=== PATIENT | female | born 1980 | race Hispanic/Latino ===

== ENCOUNTER 2016-09-05 05:56 | Emergency (ER) | payer OTHER ==
[~2016-09-05] VITALS: Ht 170.2 cm; Wt 93.4 kg
[2016-09-05 06:38] LABS: BASO % 0.5 % (0.0-1.0); EOS # 0.1 K/mm3 (0.0-0.50); EOS % 0.8 % (0.0-3.0); LARGE UNSTAINED CELL # 0.1 K/mm3 (0.0-0.4); LARGE UNSTAINED CELL % 1.3 % (0.0-4.0); LYMPH % 19.6 % (24.0-44.0); MEAN CORPUSCULAR HEMOGLOBIN 30.7 pg (27.0-33.0); MEAN CORPUSCULAR HGB CONC 33.6 g/dl (32.0-36.5); MEAN CORPUSCULAR VOLUME 91.4 fl (80.0-96.0); MONO # 0.6 K/mm3 (0.0-0.8); MONO % 5.3 % (0.0-5.0); NEUTROPHILS # 7.6 K/mm3 (1.8-7.7); NEUTROPHILS % 72.6 % (36.0-66.0); PLATELET COUNT, AUTOMATED 230 k/mm3 (150-450); RED CELL DISTRIBUTION WIDTH 13.6 % (11.5-14.5); WHITE BLOOD COUNT 10.4 K/mm3 (4.0-10.0)
[2016-09-05 07:00] LABS: ANION GAP 10 MEQ/L (8-16); BLOOD UREA NITROGEN 14 MG/DL (7-18); CALCIUM LEVEL 8.4 MG/DL (8.5-10.1); CARBON DIOXIDE LEVEL 26 MEQ/L (21-32); CHLORIDE LEVEL 103 MEQ/L (98-107); GLOMERULAR FILTRATION RATE > 60.0 (>60); GLUCOSE, FASTING 118 MG/DL (70-105); MAGNESIUM LEVEL 2.1 MG/DL (1.8-2.4); POTASSIUM SERUM 3.5 MEQ/L (3.5-5.1); SODIUM LEVEL 139 MEQ/L (136-145)
[2016-09-05] MEDS ORDERED: NS 500 ML IV ONE (07:30)
[2016-09-05] MEDS ORDERED: hydrOXYzine 10 MG TAB PO STA (08:12)
[2016-09-05] MEDS ORDERED: HYDR10T PO (08:41)
[2016-09-05 08:53] VITALS: BP 123/77
--- NOTE | 2016-09-05 09:59 | REP ---
SINGLE VIEW CHEST: There is no evidence of acute infiltrate. No pleural effusion is seen. The heart is normal in size. The mediastinal silhouette is unremarkable. The visualized osseous structures are intact. IMPRESSION: No acute pulmonary disease. Signed by Myke Arevalo MD 09/05/2016 07:45 P
--- NOTE | 2016-09-05 16:46 | ECGEPIP ---
Stationary ECG Study [facility] - ED Test Date: 2016-09-05 Pat Name: FIDEL CALLAHAN Department: Room: - Gender: F Labor Relations Analyst: LOLA : 1980 Requested By: MALOU Miller Order Number: [id number] Reading MD: Astrid Tipton Measurements Intervals [place] Rate: 120 P: 45 [place]: 182 QRS: 25 QRSD: 94 T: 50 QT: 425 QTc: 601 Interpretive Statements SINUS TACHYCARDIA ABNORMAL RHYTHM ECG NO PRIOR FOR COMPARISON Electronically Signed On 09-05-2016 16:46:26 EDT by Astrid Tipton
== END 2016-09-05 08:56 | disposition home or self-care (01) ==
LOC: EDBD 05:56 → M ED 07:09
DX: R00.2 Palpitations (principal)